=== PATIENT | female | born 1950 | race Caucasian/White ===

== ENCOUNTER 2017-11-17 12:58 | Outpatient (CLI) | payer MEDICARE ==
--- NOTE | 2017-11-19 14:54 | DEXA Report ---
DEXA: 11/17/2017 CLINICAL INDICATION: Postmenopausal. TECHNIQUE: Dual energy x-ray absorptiometry (DXA) was performed on a [employer] system. Regions measured are the AP spine, femoral neck, and, if needed, forearm. COMPARISON: None. In accordance with the International Society for Clinical Densitometry (ISCD) guidelines, data from previous exams may be reanalyzed using current recommendations and techniques. This is done to allow a more accurate basis for comparison with the current study. FINDINGS Data for the lumbar spine is as follows: REGION BMD (g/cm/cm) T-SCORE Z-SCORE L1 0.715 -3.5 -1.8 L2 0.796 -3.4 -1.7 L3 1.014 -1.6 0.2 L4 0.980 -1.8 -0.1 L1-L4 0.889 -2.4 -0.7 The data for the hip is as follows: REGION BMD (g/cm/cm) T-SCORE Z-SCORE Neck 0.656 -2.7 -1.1 TOTAL 0.674 -2.6 -1.3 NOTE: The femoral neck or total proximal femur, whichever is lowest, is used for classification. IMPRESSION WHO CLASSIFICATION BASED ON THE INTERNATIONAL REFERENCE STANDARD IS OSTEOPOROSIS. FRACTURE RISK IS HIGH. RECOMMENDATION: Patients with diagnosis of osteoporosis or osteopenia should have regular bone mineral density assessment. For those eligible for Medicare, routine testing is allowed once every 2 years. Testing frequency can be increased for patients who have rapidly progressing disease or for those who are receiving medical therapy to restore bone mass. COMMENT World Health Organization (WHO) definitions for osteoporosis and osteopenia: NORMAL BMD: T-score at 1.0 or higher, fracture risk is low. OSTEOPENIA BMD: T-score between 1.0 and -2.5, fracture risk is increased. OSTEOPOROSIS BMD: T-score at 2.5 or lower, fracture risk high. National Osteoporosis Foundation recommends: 1. Obtain adequate dietary calcium (at least 1200 mg per day) and vitamin D (400 -800 international units per day). 2. Participate, as appropriate, in regular weightbearing and muscle- strengthening exercise. 3. Avoid tobacco use and reduce alcohol and caffeine intake. 4. For more detailed information see the website at www.NOF.org. TD: 11/17/2017 15:41 ROHAN
== END 2017-11-17 12:59 | disposition home or self-care (01) ==
LOC: DI 12:58
PROVIDERS: ATTEND Internal Medicine
DX: M81.0 Age-related osteoporosis without current pathological fracture (principal); N95.8 Other specified menopausal and perimenopausal disorders; R01.1 Cardiac murmur, unspecified; R01.2 Other cardiac sounds; R07.9 Chest pain, unspecified
CPT/HCPCS: 77080; 93306

== ENCOUNTER 2017-11-17 13:02 | Outpatient (CLI) | payer MEDICARE ==
--- NOTE | 2017-11-30 13:48 | Mammography Report ---
Procedure Date: 11/17/2017 Accession Number: [id number] / [id number] Procedure: HEIDI - Screening Mammo Dig Bilat CPT Code: FULL RESULT: EXAM: Screening Mammo Dig Bilat DATE: 11/17/2017 2:20 PM CLINICAL HISTORY: ROUTINE MAMMOGRAM TECHNIQUE: Bilateral CC, laterally exaggerated CC, MLO views were obtained. COMPARISON: The patient reports having had previous mammograms in the [facility], but films are not yet available for direct comparison. If they become available, an addendum will be issued. FINDINGS: The breasts demonstrate heterogeneously dense fibroglandular parenchyma bilaterally. Coarse and punctate, typically benign calcifications are present. No suspicious masses, clustered microcalcifications, or regions of architectural distortion are identified. IMPRESSION: Benign findings RECOMMENDATION: Routine annual screening unless otherwise clinically indicated. BIRADS CATEGORY 2: Benign findings STANDARD QUALIFYING STATEMENTS: 1. This examination was reviewed with the aid of Computer-Aided Detection (CAD). 2. A negative or benign imaging report should not delay biopsy if clinically suspicious findings are present. Consider surgical consultation if warrented. More than 5% of cancers are not identified by imaging. 3. Dense breasts may obscure an underlying neoplasm.
== END 2017-11-17 13:03 | disposition home or self-care (01) ==
LOC: DI 13:02
PROVIDERS: ATTEND Internal Medicine
DX: Z12.31 Encounter for screening mammogram for malignant neoplasm of breast (principal)
CPT/HCPCS: 77067

== ENCOUNTER 2020-05-17 13:33 | Outpatient (CLI) | payer MEDICARE ==
[2020-05-17 15:07] LABS: ALBUMIN 4.4 g/dL (3.2-5.5); ALBUMIN/GLOBULIN RATIO 1.4 (1.0-2.2); ALKALINE PHOSPHATASE 32 IU/L (42-121); ALT ALANINE AMINOTRANSFERASE 18 IU/L (10-60); AST ASPARTATE AMINOTRANSFERASE 17 IU/L (10-42); BILIRUBIN,TOTAL 0.4 mg/dL (0.2-1.0); BUN - BLOOD UREA NITROGEN 15 mg/dL (6-20); CALCIUM 9.6 mg/dL (8.5-10.3); CARBON DIOXIDE - CO2 28 mmol/L (21-32); CHLORIDE 99 mmol/L (101-111); CHOL/HDL RATIO 3.1 (<4.4); CHOLESTEROL 244 mg/dL; CREATININE 0.8 mg/dL (0.4-1.0); GLUCOSE 118 mg/dL (70-100); HDL CHOLESTEROL 79 mg/dL; LDL CHOLESTEROL,CALCULATED 139 mg/dL; LDL/HDL RATIO 1.8 (<4.4); SODIUM 137 mmol/L (135-145); TOTAL PROTEIN 7.5 g/dL (6.7-8.2); VLDL CHOLESTEROL 26 mg/dL
[2020-05-17 15:19] LABS: THYROID STIMULATING HORMONE 1.21 uIU/mL (0.34-5.60)
[2020-05-17 15:22] LABS: FREE T4 (FREE THYROXINE) 0.62 ng/dL (0.58-1.64)
[2020-05-17 15:26] LABS: TOTAL T3 0.87 ng/mL (0.87-1.78)
--- NOTE | 2020-05-20 08:54 | DEXA Report ---
PROCEDURE: Dexa Spine and/or Hip INDICATIONS: OSTEOPOROSIS TECHNIQUE: Dual energy x-ray absorptiometry (DXA) was performed on a [employer] System. Regions measur ed are the AP Spine, femoral neck, and if needed forearm. COMPARISON: 11/17/2017 bone density study, utilizing same technique. FINDINGS: Lumbar Spine: Bone Mineral Density 0.784 g/cm/cm,T score -3.2, osteoporotic. The current findings represent a st atistically significant 7.7% reduction in bone mineral density from the comparison study in November 2017 . Left Hip: Bone Mineral Density 0.664 g/cm/cm,T score -2.7, osteoporosis. This represents a statistically insig nificant reduction of 1.5% in bone mineral density from November 2017. Left Femoral Neck: Bone Mineral Density 0.659 g/cm/cm, T score -2.7, osteoporosis. (T score greater or equal to -1.0: NORMAL) (T score from -1.1 to -2.4: OSTEOPENIA) (T score less than or equal to -2.5 to: OSTEOPOROSIS) Impression: Osteoporosis is present within the lumbosacral spine, left hip overall, and the left femo ral neck. There is a statistically significant reduction in bone mineral density at the lumbosacral s pine by 7.7%. The reduction in bone mineral density at the left hip and femoral neck areas is statist ically insignificant at this time. Patients with diagnosis of osteoporosis or osteopenia should have regular bone mineral density assess ment. For those eligible for Medicare, routine testing is allowed once every 2 years. Testing frequ ency can be increased for patients who have rapidly progressing disease or for those who are receivin g medical therapy to restore bone mass. Reviewed by: Diego Portillo MD on 05/18/2020 9:13 AM PST Approved by: Diego Portillo MD on 05/18/2020 9:13 AM PST Station ID: [id number]
== END 2020-05-17 13:34 | disposition home or self-care (01) ==
LOC: DI 13:33
PROVIDERS: ATTEND Nurse Practitioner Family
DX: M81.0 Age-related osteoporosis without current pathological fracture (principal); E03.9 Hypothyroidism, unspecified; R73.9 Hyperglycemia, unspecified; E78.5 Hyperlipidemia, unspecified
CPT/HCPCS: 36415; 80053; 80061; 83036; 83721; 84439; 84443; 84480

== ENCOUNTER 2020-05-17 14:41 | Outpatient (CLI) | payer MEDICARE ==
--- NOTE | 2020-05-18 13:34 | Mammography Report ---
BILATERAL DIGITAL SCREENING MAMMOGRAM 3D/2D: 05/17/2020 CLINICAL: Routine screening. Comparison is made to exam dated: 11/17/2017 mammogram - [facility]. The tissue of both breasts is heterogeneously dense. This may lower the sensitivity of mammography. No significant masses, calcifications, or other findings are seen in either breast. There has been no significant interval change. IMPRESSION: NEGATIVE There is no mammographic evidence of malignancy. A 1 year screening mammogram is recommended. This exam was interpreted at Station ID: [id number]. NOTE: For mammograms, a report in lay terms will be sent to the patient. Approximately 15% of breast malignancies will not be visualized mammographically. In the management of a palpable breast mass, a negative mammogram must not discourage biopsy of a clinically suspicious lesion. Electronically Signed By: Shahram Michele M.D. aty/penrad:05/18/2020 07:39:47 ACR BI-RADS Category 1: Negative 3341F PARENCHYMAL PATTERN: (D) - The breast(s) demonstrate(s) heterogeneously dense fibroglandular bashir sloan. BI-RADS CATEGORY: (1) - 1 RECOMMENDATION: (ANNUAL) - Recommend routine annual screening mammography. [id number] 1 year screening LATERALITY: (B)
== END 2020-05-17 14:42 | disposition home or self-care (01) ==
LOC: DI 14:41
PROVIDERS: ATTEND Nurse Practitioner Family
DX: Z12.31 Encounter for screening mammogram for malignant neoplasm of breast (principal)

== ENCOUNTER 2020-08-25 13:38 | Outpatient (CLI) | payer MEDICARE ==
--- NOTE | 2020-08-25 14:31 | XRAY Report ---
PROCEDURE: Ribs Bilat w/Chest 4 View INDICATIONS: PLEURODYNIA TECHNIQUE: 2 views of the bilateral ribs were acquired, along with a single view chest. COMPARISON: None FINDINGS: Surgical changes and devices: None. Bones and chest wall: No fractures or dislocations. No suspicious bony lesions. Overlying soft tis sues appear unremarkable. Lungs and pleura: No pleural effusions or pneumothorax. Lungs appear clear. Mediastinum: Mediastinal contours appear normal. Heart size is normal. IMPRESSION: No acute fracture. No osseous lesion. If symptoms and/or clinical suspicion for pathology continue, f urther assessment with repeat plain films, or advanced imaging (e.g., CT or bone scan) is recommended for further assessment. Reviewed by: Judah Rios MD on 08/25/2020 2:30 PM PST Approved by: Judah Rios MD on 08/25/2020 2:30 PM [facility] Station ID: [id number]
== END 2020-08-25 13:39 | disposition home or self-care (01) ==
LOC: DI 13:38
PROVIDERS: ATTEND Nurse Practitioner Family
DX: R07.81 Pleurodynia (principal)

== ENCOUNTER 2022-05-24 14:15 | Outpatient (CLI) | payer MEDICARE ==
--- NOTE | 2022-05-24 16:09 | DEXA Report ---
PROCEDURE: Dexa Spine and/or Hip INDICATIONS: SCREENING FOR OSTEOPOROSIS TECHNIQUE: Dual energy x-ray absorptiometry (DXA) was performed on a [employer] System. Regions measur ed are the AP Spine, femoral neck, and if needed forearm. COMPARISON: None. FINDINGS: Lumbar Spine: Bone Mineral Density 0.86 g/cm/cm,T score -2.7, osteoporosis Left Femoral Neck: Bone Mineral Density 0.67 g/cm/cm, T score -2.7, osteoporosis Impression: Osteoporosis of the lumbar spine and left femoral neck. Patients with diagnosis of osteoporosis or osteopenia should have regular bone mineral density assess ment. For those eligible for Medicare, routine testing is allowed once every 2 years. Testing frequ ency can be increased for patients who have rapidly progressing disease or for those who are receivin g medical therapy to restore bone mass. Reviewed by: Judah Rios MD on 05/24/2022 4:07 PM PST Approved by: Judah Rios MD on 05/24/2022 4:07 PM PST Station ID: [id number]
== END 2022-05-24 14:16 | disposition home or self-care (01) ==
LOC: DI 14:15
PROVIDERS: ATTEND Naturopath
DX: Z13.820 Encounter for screening for osteoporosis (principal); M81.0 Age-related osteoporosis without current pathological fracture

== ENCOUNTER 2022-08-08 09:23 | Outpatient (CLI) | payer MEDICARE ==
--- NOTE | 2022-08-09 10:36 | Mammography Report ---
BILATERAL DIGITAL SCREENING MAMMOGRAM 3D/2D: 08/08/2022 CLINICAL: Routine screening. Comparison is made to exams dated: 11/17/2017 mammogram and 05/17/2020 mammogram - [facility]. Both breasts are heterogeneously dense, which may obscure small masses (category c / 51-75% glandular tissue). No significant masses, calcifications, or other findings are seen in either breast. There has been no significant interval change. IMPRESSION: NEGATIVE There is no mammographic evidence of malignancy. A 1 year screening mammogram is recommended. Based on the Tyrer Cuzick model (a risk assessment model) the patients lifetime risk is 11.6% and he r 10 year risk is 8.7%. According to the ACR, ACS, and NCCN guidelines, an annual breast MRI exam martell ng with mammogram is recommended if the patients lifetime risk is 20% or greater. This exam was interpreted at Station ID: [id number]. NOTE: For mammograms, a report in lay terms will be sent to the patient. Approximately 15% of breast malignancies will not be visualized mammographically. In the management of a palpable breast mass, a negative mammogram must not discourage biopsy of a clinically suspicious lesion. Electronically Signed By: Shahram Michele M.D. [email or web address]/[email or web address]:08/08/2022 10:36:49 letter sent: No_Letter ACR BI-RADS Category 1: Negative 3341F PARENCHYMAL PATTERN: (D) - The breast(s) demonstrate(s) heterogeneously dense fibroglandular bashir sloan. BI-RADS CATEGORY: (1) - 1 RECOMMENDATION: (ANNUAL) - Recommend routine annual screening mammography. [id number] 1 year screening LATERALITY: (B)
== END 2022-08-08 09:24 | disposition home or self-care (01) ==
LOC: DI 09:23
PROVIDERS: ATTEND Physician Assistant
DX: Z12.31 Encounter for screening mammogram for malignant neoplasm of breast (principal)

== ENCOUNTER 2023-02-18 22:32 | Emergency (ER) | payer MEDICARE ==
[2023-02-18 22:53] VITALS: O2SAT 97
--- NOTE | 2023-02-18 23:39 | ED Physician Documentation ---
PD HPI UPPER EXT INJURY - Stated complaint Stated Complaint: R FINGER LAC - Chief complaint Chief Complaint: Laceration - History obtained from History obtained from: Patient - Additonal information Additional information: HPI from patient. At approximately 6:30 PM this afternoon, while at home using a mandolin to slice vegetables, the patient sustained a right fifth finger tip laceration/avulsion. Her chief concern is that it is consistently bleeding. Patient is right-hand dominant. She estimates her last tetanus booster to be approximately 15 years ago. Review of Systems Skin: reports: Laceration (s) PD PAST MEDICAL HISTORY - Past Medical History Past Medical History: Yes Endocrine/Autoimmune: HyPOthyroidism - Allergies Allergies/Adverse Reactions: Allergies Allergy/AdvReac Type Severity Reaction Status Date / Time No Known Drug Allergies Allergy Verified 02/18/23 23:52 PD ED PE NORMAL - Vitals Vital signs reviewed: Yes - General General: Alert and oriented X 3, No acute distress, Well developed/nourished PD ED PE EXPANDED - Extremities JENNIFER UE/Hands Visual: 1 - deformity (avulsed (missing) circular piece of the fingertip, no bone exposure nor nail involvement. FROM of right fifth finger (flex/ext at DIP, PIP, MCP joints). there is steady oozing (bleeding) from the area of avulsion) Results - Vitals Vitals: Oxygen O2 Source Room air PD Medical Decision Making - ED course Complexity details: considered differential, d/w patient ED course: Using the T strip closure system, I applied the rubber tourniquet to the right fifth digit; this resulted in excellent hemostasis and good visualization of the injury. I then applied a few drops of TXA to the site of avulsion, followed by application of two small, stacked pieces of Surgifoam sponge which were also impregnated with the TXA. I then applied the T-strip from the kit. There was scant blood on the Surgifoam after I cut away the rubber tourniquet, but after more than 15 minutes of observation, there was no further bleeding into the Surgifoam. Hemostasis appears to been adequately achieved. A tube gauze was applied by the ED RN to the finger, patient was given DTaP for booster, return precautions were discussed, and I advised her to follow-up with her primary care provider in 2 to 3 days for recheck of the injury. Departure - Departure Disposition: 01 Home, Self Care Clinical Impression: Fingertip avulsion Qualifiers: Encounter type: initial encounter Qualified Code(s): S61.209A - Unspecified open wound of unspecified finger without damage to nail, initial encounter Condition: Good Instructions: ED Laceration Amputation Finger Tip Open Tx Follow-Up: PAUL DODSON PA [Primary Care Provider] - (3-4 days ) Forms: PCP List Discharge Date/Time: 02/19/23 00:20
[2023-02-18] MEDS ORDERED: TRANEXAMIC ACID 1,000 MG/10 ML VIAL NAS STA (23:49)
[2023-02-18] MEDS ORDERED: TETANUS/DIPHTHERIA/PERTUSSIS 0.5 ML SYRINGE IM ONE (23:51)
[2023-02-19 00:31] VITALS: BP 129/63
== END 2023-02-19 00:20 | disposition home or self-care (01) ==
LOC: ED 22:32
DX: S61.209A Unspecified open wound of unspecified finger without damage to nail, initial encounter (principal); W27.4XXA Contact with kitchen utensil, initial encounter; Y92.009 Unspecified place in unspecified non-institutional (private) residence as the place of occurrence of the external cause; Z23 Encounter for immunization
CPT/HCPCS: 90471; 99283

== ENCOUNTER 2023-10-23 14:16 | Outpatient (CLI) | payer MEDICARE ==
--- NOTE | 2023-10-23 15:53 | XRAY Report ---
PROCEDURE: Lumbar Spine 2-3V INDICATIONS: LOW BACK PAIN TECHNIQUE: 3 views of the lumbar spine were acquired. COMPARISON: None. FINDINGS: Bones: 5 [id number] vertebrae are present. There is trace levoconvex curvature. No vertebral body compression fractures. No suspicious bony lesions. Generalized osteopenia. Multilevel degenera tive endplate changes and multilevel facet hypertrophy are seen. Soft tissues: Overlying bowel gas pattern is normal. No suspicious soft tissue calcifications. IMPRESSION: 1.Mild to moderate multilevel spondylosis. 2.Generalized osteopenia. 3.No acute osseous abnormality. If symptoms persist or there is continued clinical concern, further e valuation with MRI or CT may be helpful. Reviewed by: Darin Jason MD on 10/23/2023 3:52 PM PDT Approved by: Darin Jason MD on 10/23/2023 3:52 PM PDT Station ID: [id number]
== END 2023-10-23 14:17 | disposition home or self-care (01) ==
LOC: DI.S 14:16
PROVIDERS: ATTEND Nurse Practitioner Family
DX: M47.816 Spondylosis without myelopathy or radiculopathy, lumbar region (principal); M85.88 Other specified disorders of bone density and structure, other site

== ENCOUNTER 2023-11-20 10:47 | Outpatient (CLI) | payer MEDICARE ==
--- NOTE | 2023-11-21 10:24 | Mammography Report ---
BILATERAL DIGITAL SCREENING MAMMOGRAM 3D/2D WITH EXAGGERATED CC: 11/20/2023 CLINICAL: Routine screening. Family history of breast cancer. Comparison is made to exams dated: 08/08/2022 mammogram, 05/17/2020 mammogram, and 11/17/2017 mammogram - [facility]. Both breasts are extremely dense, which lowers the sensitivity of mammography (category d />75% gland ular tissue). No significant masses, calcifications, or other findings are seen in either breast. There has been no significant interval change. IMPRESSION: NEGATIVE There is no mammographic evidence of malignancy. A 1 year screening mammogram is recommended. Based on the Tyrer Cuzick model (a risk assessment model) the patient's lifetime risk is 16.4% and he r 10 year risk is 13.6%. According to the ACR, ACS, and NCCN guidelines, an annual breast MRI exam al carmen with mammogram is recommended if the patient's lifetime risk is 20% or greater. This exam was interpreted at Station ID: [id number]. NOTE: For mammograms, a report in lay terms will be sent to the patient. Approximately 15% of breast malignancies will not be visualized mammographically. In the management of a palpable breast mass, a negative mammogram must not discourage biopsy of a clinically suspicious lesion. Electronically Signed By: Sweta [email or web address]/umer:11/20/2023 16:36:02 letter sent: No_Letter ACR BI-RADS Category 1: Negative 3341F PARENCHYMAL PATTERN: (VD) - The breast(s) demonstrate(s) extremely dense parenchyma, limiting the sen sitivity of mammography. BI-RADS CATEGORY: (1) - 1 RECOMMENDATION: (ANNUAL) - Recommend routine annual screening mammography. [id number] 1 year screening LATERALITY: (B)
== END 2023-11-20 10:48 | disposition home or self-care (01) ==
LOC: DI.S 10:47
PROVIDERS: ATTEND Registered Nurse
DX: Z12.31 Encounter for screening mammogram for malignant neoplasm of breast (principal); Z80.3 Family history of malignant neoplasm of breast